=== PATIENT | female | born 1955 | race Caucasian/White ===

== ENCOUNTER 2017-01-07 14:33 | Observation (INO) | payer BC ==
--- NOTE | ~2017-01-07 | HP ---
History And Physical [place] [id number] [facility] [place]. [address] NAME: LAXMI MATTHEWS : 57 STATUS : ADM Greg PAT#: [id number] AGE: 61 ADM/REG DATE : 01/07/17 MR#: [id number] REPORT SERV DATE: 01/08/17 DICTATED BY: DATE: REPORT STATUS : Draft TRANSCRIBED BY: MODL DATE: 01/08/17 DATE OF ADMISSION: 01/07/2017 CHIEF COMPLAINT: Chest pain and pressure. HISTORY OF PRESENT ILLNESS: This is a very pleasant 61-year-old white female who developed right arm pain and numbness while lying down. After moving around to get comfortable and to relieve the pain and numbness, she developed midsternal chest pain and pressure, 03/10. At that time, she also became clammy and presyncopal, but did not have a syncopal event. Her above symptoms lasted about 15 minutes and resolved on their own. She denies recurrence of those symptoms. She currently denies any complaints. She denies any shortness of breath, chest pain, palpitations, nausea, or vomiting. She does report to have bilateral lower extremity edema, left greater than right, for years and has been unchanged. The patient denies any personal history of myocardial infarction, stroke, DVT, or pulmonary embolus. The patient denies any recent fever or chills. No palpitations. No syncopal episodes. No PND or orthopnea. PAST MEDICAL HISTORY: 1. Hypertension, prediabetic, insulin resistant. 2. Hyperlipidemia. 3. Hypothyroidism. 4. Breast cancer with chemo and radiation 30 years ago. 5. Narrowing of her esophagus. PAST SURGICAL HISTORY: 1. Left mastectomy. 2. Hysterectomy. 3. Cholecystectomy. 4. Tonsillectomy. 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 She does not have an exercise regimen. She is and does not have any children. She denies any tobacco use. She is a social drinker. She denies any illicit drug use. FAMILY HISTORY: Mother without any cardiac problems. Father with a history of congestive heart failure. REVIEW OF SYSTEMS: 14-point review of systems is performed, significant for HPI. No other contributory diagnosis identified. ALLERGIES: CODEINE; REACTION IS NAUSEA, VOMITING AND STOMACH PAIN. PHYSICAL EXAMINATION: RT BP: ; LT BP: ; Pulse: ; RR: ; Temp: ; O2Sat: ; Weight: . GENERAL: Cooperative, in no apparent distress. History And Physical [address] [address] NAME: LAXMI MATTHEWS : 57 STATUS : ADM Greg PAT#: [id number] AGE: 61 ADM/REG DATE : 01/07/17 MR#: [id number] REPORT SERV DATE: 01/08/17 DICTATED BY: DATE: REPORT STATUS : Draft TRANSCRIBED BY: MODL DATE: 01/08/17 HEENT: Head normocephalic, anicteric. Normal EOM. PERRLA. No xanthelasma. Nares patent. Moist mucous membranes. NECK: Trachea midline. No thyromegaly, JVD or bruits. RESPIRATORY: Clear to auscultation bilaterally anterior and posterior. Respirations even and unlabored. No wheezes, rhonchi or crackles. CARDIOVASCULAR: Regular rate and rhythm. No murmur, rub or gallop appreciated. No chest wall tenderness to palpation. ABDOMEN: Obesity. Soft, nontender, nondistended, normal bowel sounds auscultated throughout. No masses or organomegaly. EXTREMITIES: Nonpitting edema to bilateral lower extremities, left greater than right, chronic per patient. DP/PT and radial pulses palpable bilaterally. No clubbing or cyanosis. SKIN: Warm, dry and intact. Normal turgor. No pallor or cyanosis. NEURO/PSYCH: Alert, oriented x3 with no acute distress. Affect appropriate to current situation. LABORATORY DATA: Troponins x3 negative, 0.02. Sodium 139, potassium 4.1, chloride 106, BUN 15, creatinine 0.86. GFR 85. Glucose 182, calcium 8.9, magnesium 2.1. White blood cells 6.7, hemoglobin 13.0, hematocrit 38.1, and platelets 214. INR 1.1. IMAGING: Chest x-ray done, 01/07/2017, showed no cardiopulmonary process. Lungs clear. EKG done, 01/08/2017, showed sinus rhythm with first-degree AV block, questionable left atrial enlargement. equipment monitor phototypesetting shows the patient in sinus rhythm at 85. No ectopy. ASSESSMENT AND PLAN: 1. Substernal chest pain. Troponins x3 have been negative, less than 0.02. The patient denies chest pain currently. We will keep the patient n.p.o. and plan a cardiac PET scan today due to history of left mastectomy. If stress test is low risk and no ischemia noted, RN may discharge the patient home with a followup with the PCP in one week. The patient has cardiac risk factor of hypertension, hyperlipidemia, and borderline diabetes. 2. Hypertension appears stable. The patient is on hydrochlorothiazide and Diovan. 3. Hyperlipidemia. The patient is on a statin. 4. Hypothyroidism. The patient is on levothyroxine. 5. Left mastectomy. Last chemoradiation over 30 years ago, appears stable. 6. Borderline diabetes is what patient states. Blood sugar is 182. I will defer further testing with A1c and further treatment to patient's PCP. At this time, I will order a sliding scale level 1 while in the hospital. 7. Obesity. BMI is 37.4. Discussed exercise regimen with the patient and diet management. If anything is suggestive of ischemia, Cardiology referral will be initiated. EKS/MODL History And Physical [address] [address] NAME: LAXMI MATTHEWS : 57 STATUS : ADM Greg PAT#: [id number] AGE: 61 ADM/REG DATE : 01/07/17 MR#: [id number] REPORT SERV DATE: 01/08/17 DICTATED BY: DATE: REPORT STATUS : Draft TRANSCRIBED BY: MICAH DATE: 01/08/17 Rosey Johns APN / [id number] CC: JOSUE Blount DO
[2017-01-07 14:03] LABS: BASOPHILS 0.1 %; BASOPHILS ABSOLUTE 0.01 10/3/uL (0.0-0.16); EOSINOPHILS 1.5 %; HEMATOCRIT 38.1 % (36.0-48.0); IMMATURE GRANULOCYTES 0.4 %; IMMATURE GRANULOCYTES ABSOLUTE 0.03 10/3/uL (0.0-0.11); LYMPHOCYTES 20.7 %; LYMPHOCYTES ABSOLUTE 1.38 10/3/uL (0.67-4.30); MANUAL DIFF NO %; MEAN CORPUS HGB CONC 34.1 g/dL (32.0-36.0); MEAN CORPUSCULAR HEMOGLOB 29.2 pg (26.0-34.0); MEAN CORPUSCULAR VOLUME 85.6 fL (80-100); MEAN PLATELET VOLUME 10.4 fL (9.2-13.0); MONOCYTES 8.7 %; MONOCYTES ABSOLUTE 0.58 10/3/uL (0.21-1.20); NEUTROPHILS 68.6 %; NEUTROPHILS ABSOLUTE 4.58 10/3/uL (2.02-8.40); PLATELET COUNT 214 10/3/uL (150-400); RBC DISTRIBUTION WIDTH 13.2 % (12.0-16.0); RED CELL COUNT 4.45 10/6/uL (4.0-5.6); WHITE BLOOD CELLS 6.7 10/3/uL (4.5-10.5)
[2017-01-07 14:10] LABS: INTERNATIONAL NORMAL RATI 1.1 UNITS (-); PARTIAL THROMBO TIME 26.1 SEC (22.5-37.2); PROTIME (NOT ORD) 13.7 SEC (12.0-14.5)
[2017-01-07 14:17] LABS: CALCIUM, SERUM 8.9 MG/DL (8.5-10.4); CHEST PAIN PROFILE TAT 0 Hrs 18 Mins; CHLORIDE, SERUM 106 MMOL/L (96-112); CO2 (CARBON DIOXIDE) 29 MMOL/L (24-34); CREATININE 0.86 MG/DL (0.55-1.02); GFR AFRICAN AMERICAN 85 ML/MIN (>=60); GFR NON AFRICAN AMERICAN 73 ML/MIN (>=60); GLUCOSE, SERUM 182 MG/DL (60-99); POTASSIUM, SERUM 4.1 MMOL/L (3.5-5.3); SODIUM, SERUM 139 MMOL/L (135-148); TROPONIN I <0.02 NG/ML (<0.05)
[2017-01-07 14:18] LABS: BUN (BLOOD UREA NITROGEN) 15 MG/DL (6-23)
[~2017-01-07 14:33] MED LIST: ACTOS15 PO; ADVIL PO; CYTO5 PO; DIOVAN HC1 PO; GLUCOPHAGE1000 MG PO; LIPITOR80 MG PO; PROZAC40 MG PO; SYN.025B PO; VITAMIN D31000 UNIT PO
== END 2017-01-08 17:57 | disposition home or self-care (01) ==
LOC: ER 14:33 → CDU1 15:21
PROVIDERS: Emergency Medicine
DX: R07.89 Other chest pain (principal); I10 Essential (primary) hypertension; E78.5 Hyperlipidemia, unspecified; E03.9 Hypothyroidism, unspecified; E66.9 Obesity, unspecified; Z90.12 Acquired absence of left breast and nipple; Z88.5 Allergy status to narcotic agent; Z90.49 Acquired absence of other specified parts of digestive tract; Z90.89 Acquired absence of other organs; Z90.710 Acquired absence of both cervix and uterus
CPT/HCPCS: 71010; 78492; 80048; 82962; 83735; 84484; 85025; 85610; 85730; 93005; 93017; 99285; A9270-GY; A9555; G0378; J2785